=== PATIENT | female | born 1960 | race Caucasian/White ===

== ENCOUNTER 2018-01-16 06:26 | Day surgery (SDC) | payer MEDICAID ==
[~2018-01-16] VITALS: Ht 152.4 cm; Wt 64.4 kg
[2018-01-16] MEDS ORDERED: LISI2.5T12 PO (07:56)
[2018-01-16] MEDS ORDERED: METF850T4 PO (07:56)
[2018-01-16] MEDS ORDERED: LIDOCAINE 2% 100 MG/5 ML UJET TP ONE (09:41)
[2018-01-16] MEDS ORDERED: KETOROLAC 30 MG/ML VIAL ONE (09:41)
== END 2018-01-16 10:47 | disposition home or self-care (01) ==
LOC: MDS 06:26 → MMU 06:27 → MDS 10:47
PROVIDERS: ATTEND Internal Medicine Gastroenterology
DX: Z12.11 Encounter for screening for malignant neoplasm of colon (principal); K63.5 Polyp of colon; K64.8 Other hemorrhoids; I10 Essential (primary) hypertension; E78.5 Hyperlipidemia, unspecified; E11.9 Type 2 diabetes mellitus without complications; Z80.0 Family history of malignant neoplasm of digestive organs; Z79.899 Other long term (current) drug therapy
CPT/HCPCS: 45385; 82948; J1885